=== PATIENT | female | born 1980 | race African-American/Black ===

== ENCOUNTER 2017-02-20 08:17 | Emergency (ER) | payer OTHER ==
--- NOTE | ~2017-02-20 | US60 ---
[facility] A Service of [facility] & [facility] RADIOLOGY TEXT RESULTS PATIENT: ANGIE MURRAY LOCATION: [facility] : 82 UNIT #: [id number] AGE: [address]: Lisbet Dubon SEX: F ORDER DR: [id number] [facility] [address] [place], [place] [address] [id number] E MR#: [id number] Acc #: [id number] NAME: ANGIE MURRAY : 1980 SEX: F STUDY DATE/TIME: 02/20/2017 9:26 UNIT: [facility] ROOM: STUDY DESCRIPTION: US /Mat <14Wk Ea Add Gest Attending Physician: Lisbet Dubon P.A.-C. Ordering Physician: Lisbet Dubon P.A.-C. Primary Care Physician: Generic Doctor Not In System MEDICAL IMAGING REPORT This report is preliminary unless electronic signature is present EXAM ultrasound HISTORY Abdominal pain and nausea. Positive test. TECHNIQUE Ultrasound evaluation was performed with alberto-scale, color flow and Doppler spectral waveform analysis. FINDINGS There is a single intrauterine noted. Gestational age estimated by crown-rump length is 10 weeks. Cardiac activity is seen at a rate of 153 bpm. motion is identified. The adnexal regions are clear. IMPRESSION Viable 10 week intrauterine gestation. Cardiac activity at 153 bpm. No abnormalities noted. Dictated by... Abiodun Mcclain M.D. THIS IS AN ELECTRONICALLY VERIFIED REPORT Abiodun Mcclain M.D. at 02/22/2017 7:21 AM RLF/harriet TD: 02/21/2017 00:15 JOB #: [id number] MEDICAL IMAGING REPORT Page 1 of 1 COPY
[2017-02-20 08:59] LABS: BASOPHIL% 0.4 % (0-2.5); EOSINOPHIL% 0.6 % (0.0-7.0); HEMATOCRIT 39.2 % (35.0-45.0); HEMOGLOBIN 13.1 gm/dL (12.0-16.0); LYMPHOCYTE# 1.7 X10e3 (1.0-3.5); LYMPHOCYTE% 26.3 % (17.0-45.0); MEAN CELL VOLUME 91.9 FL (83-96); MEAN CORPUSCULAR HEMOGLOBIN 30.7 PG (28-34); MEAN CORPUSCULAR HGB CONC 33.4 g/dL (30-36); MEAN PLATELET VOLUME 7.8 FL (6.5-11.5); MONOCYTE# 0.4 X10e3 (0-1.0); MONOCYTE% 6.2 % (3.0-12.0); NEUTROPHIL# 4.3 X10e3 (1.5-7.1); NEUTROPHIL% 66.5 % (40-75); PLATELET COUNT 241 X10e3 (140-420); RED BLOOD COUNT 4.26 X10e (3.90-5.30); RED CELL DISTRIBUTION WIDTH 14.1 % (11.0-15.5); WHITE BLOOD COUNT 6.4 X10e3 (4.0-10.5)
[2017-02-20 09:05] LABS: DIFF IND NO
[2017-02-20 09:11] LABS: URINE SOURCE CLEAN CATCH
[2017-02-20 09:18] LABS: URINE BILIRUBIN NEG (NEG); URINE BLOOD NEG (NEG); URINE GLUCOSE NORM (NORM); URINE KETONE NEG (NEG); URINE LEUKOCYTE ESTERASE 1+ (NEG); URINE NITRATE NEG (NEG); URINE PROTEIN NEG (NEG); URINE SPECIFIC GRAVITY 1.015 (1.003-1.035); URINE UROBILINOGEN NORM (NORM)
[2017-02-20 09:19] LABS: URINE APPEARANCE HAZY; URINE COLOR YELLOW
[2017-02-20 09:26] LABS: ALBUMIN SERUM 4.1 g/dL (3.5-5.0); BILIRUBIN, DIRECT 0.1 mg/dL (0.0-0.2); BILIRUBIN,INDIRECT 0.4 mg/dL (0.0-0.9); BILIRUBIN,TOTAL 0.5 mg/dL (0.2-2.0); CALCIUM SERUM 8.6 mg/dL (8.4-10.2); CREATININE SERUM 0.5 mg/dL (0.6-1.4); GLOM FILT RATE Estimated 145.3 mL/min (>60); POTASSIUM 3.6 mmol/L (3.5-5.1); PROTEIN TOTAL SERUM 7.2 g/dL (6.0-8.3)
[2017-02-20 09:27] LABS: CULTURE INDICATED? YES; URBCS1 AUWI 0-2 /[HPF] (0-2); URINE BACTERIA AUWI 1+ (NEGATIVE)
[2017-02-20 09:28] LABS: URINE SQUAMOUS EPITHELIAL CELL MODERATE /[HPF]
[2017-02-23 01:46] LABS: CHLAMYDIA TRACH Not Detected (Not Detected); N GONOR Not Detected (Not Detected)
== END 2017-02-20 12:40 | disposition home or self-care (01) ==
LOC: CED 08:17
PROVIDERS: Physician Assistant
DX: R51 Headache (principal); N76.0 Acute vaginitis; N39.0 Urinary tract infection, site not specified
CPT/HCPCS: 76801; 76802; 80048; 80076; 81003; 83690; 84702; 84703; 85025; 87086; 87088; 87186; 87491; 87591; 87808; 87905; 96360; 99284; J1200; J2765